=== PATIENT | female | born 1960 | race Hispanic/Latino ===

== ENCOUNTER 2022-10-24 22:12 | Emergency (ER) | payer OTHER ==
[~2022-10-24] VITALS: Ht 149.9 cm; Wt 63.0 kg
[2022-10-24 23:28] LABS: BASOPHILS % (AUTO) 0.4 % (0.0-5.0); EOSINOPHILS % (AUTO) 1.2 % (0.0-8.0); HEMATOCRIT 34.1 % (36-48); MEAN CORPUSCULAR HEMOGLOBIN 27.4 pg (27.0-33.0); MEAN CORPUSCULAR HGB CONC 32.8 g/dL (32.0-36.0); MEAN CORPUSCULAR VOLUME 83.4 fL (79-99); NEUTROPHILS % (AUTO) 70.1 % (40.0-77.0); PLATELET COUNT (AUTO) 272 K/uL (130-400); RED BLOOD CELL COUNT(AUTO) 4.09 MIL/uL (4.00-5.50); RED CELL DISTRIBUTION WIDTH 13.4 % (11.0-15.5); WHITE BLOOD COUNT (AUTO) 9.4 K/uL (4.8-10.8)
[2022-10-24] MEDS ORDERED: 0.9% NACL 500ML IV.SOLN 500 ML IV ONE (23:30)
[2022-10-24] MEDS ORDERED: HYDRALAZINE 20MG/ML VIAL IV ONE (23:30)
[2022-10-24] MEDS ORDERED: ONDANSETRON 4MG INJ IVP ONE (23:30)
[2022-10-25] MEDS ORDERED: LISI20TA24 PO (00:41)
[2022-10-25] MEDS ORDERED: ONDA4TAB10 PO (00:41)
[2022-10-25] MEDS ORDERED: ACETAMINOPHEN 500 MG TABLET ONE (01:09)
[2022-10-25 01:18] VITALS: BP 148/53
[2022-10-25] MEDS ORDERED: ACETAMINOPHEN 500 MG TABLET PO ONE (01:30)
[2022-10-25] MEDS ORDERED: ONDANSETRON ODT 4MG TAB ONE (01:31)
== END 2022-10-25 01:19 | disposition home or self-care (01) ==
LOC: EDH 22:12
DX: R11.2 Nausea with vomiting, unspecified (principal); I10 Essential (primary) hypertension; E11.9 Type 2 diabetes mellitus without complications; E78.00 Pure hypercholesterolemia, unspecified
CPT/HCPCS: 99285; 96374; 70450; 96361; 96375; 84484; 80048; 85025; 36415; 93005; J7040; J0360; J2405

== ENCOUNTER → 2025-05-06 | Outpatient (CLI) | payer MEDICARE ==
[~2025-05-06] MED LIST: LISI20TA24 PO; ONDA-243 PO
== END | disposition home or self-care (01) ==
LOC: RAH 04-12 11:13
PROVIDERS: ATTEND Nurse Practitioner Family
DX: Z12.31 Encounter for screening mammogram for malignant neoplasm of breast (principal)
CPT/HCPCS: 77067